=== PATIENT | male | born 1955 | race Caucasian/White ===

== ENCOUNTER → 2017-03-11 | Outpatient (CLI) | payer OTHER ==
[~2017-03-11] VITALS: Ht 175.3 cm; Wt 104.5 kg
[~2017-03-11] MED LIST: GABA-113 PO; GLC/500 PO; LISI-729 PO; MORP100T53 PO; OXYC1TAB3 PO; PRAV20TA PO; PRED10TA PO; SILV1CRE73 TOP
[2017-03-11 10:32] VITALS: Ht 175.3 cm; Wt 104.5 kg
--- NOTE | 2017-03-11 11:11 | PAT Medication Instructions ---
Service Date Mar 11, 2017. Current Home Medication List Gabapentin (Neurontin), 900 MG PO BID Lisinopril (Zestril), 5 MG PO QAM Metformin Hcl (Glucophage), 500 MG PO BID Morphine Sulfate (Ms Contin), 100 MG PO TID PRN for RN Oxycodone Immediate Rel Tab (Roxicodone Ir), 1 TAB PO PRN Pravastatin (Pravachol ), 20 MG PO QAM Prednisone Tab (Prednisone), 10 MG PO QAM Silver Sulfadiazine (Silvadene), 1 APPLN TOP BID PRN for credentialing analyst Instructions For Your Scheduled Surgery Prednisone Tab (Prednisone), 10 MG PO QAM (to be completed prior to surgery if needed) - Hold the following medications 24 hours prior to surgery: Silver Sulfadiazine (Silvadene), 1 APPLN TOP BID PRN for RN - Hold the following medications 48 hours prior to surgery: Metformin Hcl (Glucophage), 500 MG PO BID - Hold the following medications the morning of surgery: Lisinopril (Zestril), 5 MG PO QAM - Take the following medications the morning of surgery with a sip of water: Pravastatin (Pravachol ), 20 MG PO QAM Oxycodone Immediate Rel Tab (Roxicodone Ir), 1 TAB PO PRN (okay to take up to 4 hours prior to surgery if needed) Morphine Sulfate (Ms Contin), 100 MG PO TID PRN for RN (okay to take up to 4 hours prior to surgery if needed) Gabapentin (Neurontin), 900 MG PO BID - Take the following medications as scheduled the night before surgery: Oxycodone Immediate Rel Tab (Roxicodone Ir), 1 TAB PO PRN (if needed) Morphine Sulfate (Ms Contin), 100 MG PO TID PRN for RN (if needed) Gabapentin (Neurontin), 900 MG PO BID If you have any questions please call us at [phone] or [phone] or [phone]
--- NOTE | 2017-03-11 11:53 | DIAGNOSTIC IMAGING REPORT ---
CHEST PREADMISSION(PA/LAT) CLINICAL HISTORY: PAT preoperative evaluation COMPARISON STUDY: No previous studies for comparison. FINDINGS: The bones soft tissues and hemidiaphragms are normal. The cardiomediastinal silhouette is normal. The lungs are clear. The pulmonary vasculature is normal. IMPRESSION: Negative chest. Electronically signed by: Kory Streeter M.D. 03/11/2017 11:52 AM Dictated Date/Time: 03/11/2017 11:51 AM
[2017-03-11 11:54] LABS: BASO % 1.1 %; COMPLETE YES; EOS % 1.7 %; HEMATOCRIT 36.6 % (42-52); IG% 0.5 %; LYMPH % 13.9 %; LYMPH ABS # 1.29 K/uL (1.2-3.4); MEAN CELL VOLUME 94.6 fL (80-100); MEAN CORPUSCULAR HGB CONC 31.7 g/dl (32-36); MONO % 5.6 %; NEUT % 77.2 %; PLATELET COUNT 272 K/uL (130-400); RED BLOOD COUNT 3.87 M/uL (4.7-6.1); WHITE BLOOD COUNT 9.26 K/uL (4.8-10.8)
[2017-03-11 11:55] LABS: URINE APPEARANCE CLEAR (CLEAR); URINE BILIRUBIN NEG (NEG); URINE COLOR YELLOW; URINE NITRITE NEG (NEG); URINE SPECIFIC GRAVITY 1.017 (1.000-1.030); UROBILINOGEN NEG (NEG)
--- NOTE | 2017-03-11 11:57 | DIAGNOSTIC IMAGING REPORT ---
CERVICAL SPINE 3 VIEWS CLINICAL HISTORY: Preoperative examination. History of rheumatoid arthritis. FINDINGS: Lateral views of the cervical spine in the neutral position as well as in flexion and extension are obtained. No prior studies are available for comparison at the time of dictation. The skeletal structures are osteopenic. C6 and C7 are not well-visualized due to the patient's shoulders. There is no radiographic evidence of fracture on these lateral views. Vertebral body height is maintained from C2 through C5. There is minimal retrolisthesis at C3-C4 and C4-C5. This is unchanged on the flexion/extension views. No inducible subluxation is identified. The atlantodental articulation is maintained. Anterior osteophytes are noted. There is moderate to advanced disc space narrowing seen at C3-C4, C4-C5, and C5-C6 with associated endplate sclerosis. Posterior disc osteophyte complexes at these levels likely contribute to acquired compromise of the central canal. The prevertebral soft tissues are normal as imaged. IMPRESSION: 1. There is minimal retrolisthesis at C3-C4 and C4-C5. This was unchanged on the flexion/extension views. 2. The atlantodental articulation appears maintained. 3. Osteopenia and spondylotic change as above. C6 and C7 were not well visualized. Electronically signed by: Arsen Alcantara M.D. 03/11/2017 11:56 AM Dictated Date/Time: 03/11/2017 11:53 AM
[2017-03-11 11:59] LABS: MANUAL MICROSCOPIC REQUIRED? NO; REVIEW REQ? NO
[2017-03-11 12:15] LABS: BUN/CREATININE RATIO 10.3 (10-20); CALCIUM 8.9 mg/dl (8.5-10.1); CREATININE 0.94 mg/dl (0.60-1.40); POTASSIUM 4.6 mmol/L (3.5-5.1)
== END | disposition home or self-care (01) ==
LOC: C.LAB 08:00 → EDSTATUS 03-25 09:19
PROVIDERS: ATTEND Orthopaedic Surgery Orthopaedic Surgery of the Spine
DX: Z01.810 Encounter for preprocedural cardiovascular examination (principal); Z01.812 Encounter for preprocedural laboratory examination